=== PATIENT | male | born 1970 | race Caucasian/White ===

== ENCOUNTER 2019-12-07 13:50 | Inpatient (IN) | payer OTHER ==
[~2019-12-07] VITALS: Ht 170.2 cm; Wt 97.3 kg
--- NOTE | 2019-12-07 16:00 | NUR ---
Direct Admit Note SONDRA MARTIN admitted to [facility] unit as a direct admit per MD order. Patient oriented to ARIADNA FOREMANRN primary RN, unit, room, bed, and unit policies regarding patient care and visiting hours. Patient weighed by bedscale and encouraged to call if they need something. Bed in lowest/locked position, bed rails up x2, call light within reach. All questions and concerns addressed, patient verbalized understanding. MD notified of patients arrival and admit orders received.
--- NOTE | 2019-12-07 16:06 | NUR ---
SREEKANTH SPOKE WITH DR STACK RE: PATIENT ADMIT ORDERS. ALL ORDERS PLACED. ALL QUESTIONS/CONCERNS ANSWERED. WILL CONTINUE TO MONITOR Addendum: 12/07/19 at 1722 by ARIADNA FOREMAN RN RN PER DR STACK CONTACT DR PATRICK HAIDER DIET
--- NOTE | 2019-12-07 16:10 | NUR ---
CONSULT DR NGUYEN CALLED RE: PATIENT SURGICAL CONSULT. LEFT MESSAGE. AWAITING RETURN CALL. WILL CONTINUE TO MONITOR
[2019-12-07] MEDS ORDERED: LABE100T4 PO (16:12)
[2019-12-07] MEDS ORDERED: AMLO10TA13 PO (16:12)
[2019-12-07] MEDS ORDERED: ATOR40TA52 PO (16:12)
[2019-12-07] MEDS ORDERED: HCTZ25T PO (16:12)
[2019-12-07] MEDS ORDERED: ASPI-498 PO (16:12)
[2019-12-07] MEDS ORDERED: ALLO100T PO (16:12)
[2019-12-07] MEDS ORDERED: NAP500T PO (16:12)
[2019-12-07] MEDS ORDERED: INSUINJ2 SC (16:14)
[2019-12-07] MEDS ORDERED: NITROGLYCERIN 0.4 MG SL TAB SL PRN (16:15)
[2019-12-07] MEDS ORDERED: MORPHINE SULF INJ 2 MG/ML SYRINGE 1ML IV PRN (16:15)
[2019-12-07] MEDS ORDERED: DEXTROSE (50%) 50ML SYRG IV PRN (16:15)
[2019-12-07] MEDS ORDERED: MORPHINE SULFATE 4 MG/ML SYR/VIAL IV PRN (16:15)
--- NOTE | 2019-12-07 16:20 | NUR ---
EKG EKG DONE, IN CHART PER MD ORDERS
--- NOTE | 2019-12-07 16:30 | NUR ---
IV insertion IV access obtained, via clean sterile technique by inserting 20 gauge catheter at LFA after 1 attempt. IV secured properly. No trauma to site. Patient tolerated procedure well.
[2019-12-07] MEDS: ACCU-CHEK COMFORT CURVE STRIP VI SCH ×2 (17:00→22:14)
[2019-12-07] MEDS: InsuLIN REG 1unit/0.01ml Soln (100units/ml) SC SCH ×2 (17:00→22:00)
[2019-12-07 17:27] VITALS: BP 144/86
[2019-12-07 18:23] LABS: Basophils # (auto) 0.1 10 ^3/uL (0-0.2); Eosinophils # (auto) 0.3 10 ^3/uL (0-0.8); Neutrophils # (auto) 5.7 10 ^3/uL (1.6-8.6); Platelet Count (auto) 136 10^3/uL (140-450)
[2019-12-07 18:24] LABS: Basophils % (auto) 0.8 % (0.0-2.0); Eosinophils % (auto) 3.3 % (0.0-7.0); Hematocrit 52.4 % (41.0-53.0); Hemoglobin 18.2 g/dL (13.5-17.5); Lymphocytes # (auto) 1.6 10 ^3/uL (0.4-5.4); Lymphocytes % (auto) 18.9 % (10.0-50.0); Mean Corpuscular Hemoglobin 30.5 pg (28.0-32.0); Mean Corpuscular Hgb Conc. 34.8 g/dL (32.0-36.0); Mean Corpuscular Volume 87.7 fL (80.0-100.0); Monocytes # (auto) 0.7 10 ^3/uL (0-1.3); Monocytes % (auto) 8.4 % (0.0-12.0); Neutrophils % (auto) 68.6 % (37.0-80.0); Nucleated Red Blood Cells % 0.3 %; Red Blood Cells 5.97 10^6/uL (4.5-5.90); Red Cell Distribution Width 13.5 % (11.8-14.3); White Blood Cell 8.3 10^3/uL (4.4-10.8)
[2019-12-07 18:41] LABS: Albumin 3.6 g/dL (3.4-5.0); Calcium 9.1 mg/dL (8.5-10.1); Potassium 3.4 mmol/L (3.5-5.1)
--- NOTE | 2019-12-07 18:41 | NUR ---
SREEKANTH PATIENT STATED "HE HAS SLEEP APNEA AND WANTS TO KNOW IF WE HAVE THE MACHINE" INFORMED PATIENT THAT I WOULD CONTACT DR STACK RE: SLEEP APNEA. LEFT MESSAGE WITH DR STACK, AWAITING RETURN CALL
[2019-12-07 18:43] LABS: BUN/Creatinine Ratio 13.6
[2019-12-07 18:45] LABS: Bilirubin, Total 0.9 mg/dL (0.2-1.0)
--- NOTE | 2019-12-07 18:46 | NUR ---
SREEKANTH CALL BACK RECEIVED CALL FROM DR STACK RE: SLEEP APNEA. PER DR STACK; HE WILL VERIFY PATIENT'S NEEDS WITH FACILITY.
--- NOTE | 2019-12-07 19:30 | NUR ---
Opening Shift Note Assumed care of patient, awake and alert. No S/S of distress/SOB or pain. Inmate guards present at bedside. Bed in lowest locked position, safety precautions in place, and call light within reach. Instructed on POC and to call for assist PRN, will continue to monitor for changes Q1hr and PRN.
[2019-12-07 19:55] LABS: INR 1.04 (0.9-1.15); Partial Thromboplastin Time 30.7 sec (23.0-31.2)
[2019-12-07 22:00] VITALS: BP 124/84
[2019-12-07] MEDS ORDERED: LABETALOL HCL 200 MG TAB PO SCH (22:00)
[2019-12-07] MEDS: INSULIN NPH Isophane (HUMAN) 1unit/0.01ml Susp(100units/ml) SC SCH (22:00)
[2019-12-08 05:00] VITALS: BP 126/84
[2019-12-08] MEDS: InsuLIN REG 1unit/0.01ml Soln (100units/ml) SC SCH ×4 (06:20→22:00)
[2019-12-08] MEDS: ACCU-CHEK COMFORT CURVE STRIP VI SCH ×3 (06:20→16:30)
--- NOTE | 2019-12-08 08:00 | NUR ---
Opening Shift Note Assumed care of patient, awake, alert, and oriented. No S/S of distress/SOB or pain. Bed in lowest/locked position, bed rails up x2, call light within reach. Guards at bedside. Instructed on POC and to call for assist PRN. Will continue to monitor for changes Q1hr and PRN.
--- NOTE | 2019-12-08 08:20 | NUR ---
ROUNDS DR STACK AT BEDSIDE
[2019-12-08 09:00] VITALS: BP 145/82
[2019-12-08] MEDS: ALLOPURINOL 100 MG TAB PO SCH (09:16)
[2019-12-08] MEDS: HCTZ 25 MG TAB PO SCH (09:16)
[2019-12-08] MEDS: amLODIPine BESYLATE 5 MG TAB PO SCH (09:17)
[2019-12-08] MEDS: LABETALOL HCL 200 MG TAB PO SCH ×2 (09:17→22:15)
[2019-12-08] MEDS: INSULIN NPH Isophane (HUMAN) 1unit/0.01ml Susp(100units/ml) SC SCH ×2 (09:20→22:00)
[2019-12-08 13:00] VITALS: BP 127/81
[2019-12-08 17:00] VITALS: BP 134/72
--- NOTE | 2019-12-08 19:10 | NUR ---
MD NGUYEN RECEIVED CALL FROM DR NGUYEN RE: PATIENT PROCEDURE. NEW ORDERS RECEIVED/WILL ENDORSE TO NIGHT RN.
--- NOTE | 2019-12-08 19:20 | NUR ---
LAB TOREY SWAB WALKED TO LAB
--- NOTE | 2019-12-08 19:45 | NUR ---
OPENING SHIFT NOTE PT RESTING IN BED WITH 3 GUARDS AT BEDSIDE AND RIGHT WRIST HANDCUFFED TO SIDE RAIL. NO S/S OF ANY DISTRESS NOTED AT THIS TIME. POC DISCUSSED WITH PT AND VERBALIZES UNDERSTANDING. BED IS LOW, WHEELS ARE LOCKED, AND CALL LIGHT IS WITH IN REACH.
[2019-12-08 22:00] VITALS: BP 135/69
[2019-12-09] MEDS: ACCU-CHEK COMFORT CURVE STRIP VI SCH ×5 (00:14→21:41)
[2019-12-09 05:00] VITALS: BP 133/80
--- NOTE | 2019-12-09 05:00 | NUR ---
PT CHG WIPE BATH DONE NOW. LINENS CHANGED, AND PT PUT ON NEW GOWN AND SOCKS.
[2019-12-09] MEDS: InsuLIN REG 1unit/0.01ml Soln (100units/ml) SC SCH ×4 (05:57→21:42)
--- NOTE | 2019-12-09 06:15 | NUR ---
NEW IV STARTED IN RIGHT AC WITH 22G CATH.
[2019-12-09 06:52] LABS: Eosinophils # (auto) 0.3 10 ^3/uL (0-0.8); Lymphocytes # (auto) 1.4 10 ^3/uL (0.4-5.4); Monocytes # (auto) 0.7 10 ^3/uL (0-1.3)
[2019-12-09 06:58] LABS: Basophils # (auto) 0 10 ^3/uL (0-0.2); Basophils % (auto) 0.6 % (0.0-2.0); Eosinophils % (auto) 4.6 % (0.0-7.0); Hematocrit 54.8 % (41.0-53.0); Hemoglobin 18.4 g/dL (13.5-17.5); Lymphocytes % (auto) 20.1 % (10.0-50.0); Mean Corpuscular Hemoglobin 29.7 pg (28.0-32.0); Mean Corpuscular Hgb Conc. 33.5 g/dL (32.0-36.0); Mean Corpuscular Volume 88.7 fL (80.0-100.0); Monocytes % (auto) 10.1 % (0.0-12.0); Neutrophils # (auto) 4.5 10 ^3/uL (1.6-8.6); Neutrophils % (auto) 64.6 % (37.0-80.0); Nucleated Red Blood Cells % 0.1 %; Platelet Count (auto) 145 10^3/uL (140-450); Red Blood Cells 6.17 10^6/uL (4.5-5.90); Red Cell Distribution Width 13.8 % (11.8-14.3)
[2019-12-09 07:07] LABS: BUN/Creatinine Ratio 13.6; Calcium 9.3 mg/dL (8.5-10.1); INR 1.03 (0.9-1.15); Partial Thromboplastin Time 30.1 sec (23.0-31.2); Potassium 3.5 mmol/L (3.5-5.1)
--- NOTE | 2019-12-09 07:30 | NUR ---
Opening Shift Note Assumed care of patient, awake and alert. No S/S of distress/SOB or pain. Instructed on POC and to call for assist PRN, will continue to monitor for changes Q1hr and PRN.
[2019-12-09 09:00] VITALS: BP 138/79
[2019-12-09] MEDS: INSULIN NPH Isophane (HUMAN) 1unit/0.01ml Susp(100units/ml) SC SCH ×2 (10:00→21:42)
[2019-12-09] MEDS: ALLOPURINOL 100 MG TAB PO SCH (10:00)
[2019-12-09] MEDS: amLODIPine BESYLATE 5 MG TAB PO SCH (10:00)
[2019-12-09] MEDS: HCTZ 25 MG TAB PO SCH (10:00)
[2019-12-09] MEDS: LABETALOL HCL 200 MG TAB PO SCH ×2 (10:00→21:49)
--- NOTE | 2019-12-09 12:30 | NUR ---
This RN took pt. down to Pre-op for procedure. Pt. showed no s/s of distress.
[2019-12-09 13:00] VITALS: BP 135/72
[2019-12-09] MEDS ORDERED: SUCCINYLCHOLINE CHLORIDE 20 MG/ML 10ML VIAL IV ONE (14:05)
[2019-12-09] MEDS ORDERED: LIDOCAINE 1% (LOCAL ANESTH.) PF 5ml SDV ONE (14:05)
[2019-12-09] MEDS ORDERED: BUPIVACAINE 0.25% INJ 50ML VIAL ONE (14:12)
[2019-12-09] MEDS ORDERED: LIDOCAINE 1% HCL (LOCAL ANESTH.) INJ 20ML MDV ONE ×2 (14:13)
[2019-12-09] MEDS ORDERED: ROCURONIUM 10MG/ML 10ML VIAL IV ONE (14:24)
[2019-12-09] MEDS ORDERED: cefOXitin 2GM/100ML 100 ML IV ONE (14:31)
[2019-12-09] MEDS ORDERED: MIDAZOLAM HCL 1MG/1ML-2 ML VIAL ONE (14:37)
[2019-12-09] MEDS ORDERED: ETOMIDATE (2MG/ML) 20ML VIAL IV ONE (14:38)
[2019-12-09] MEDS ORDERED: METOCLOPRAMIDE HCL 5MG/ml INJ 2ml VIAL ONE (14:38)
[2019-12-09] MEDS ORDERED: fentaNYL CITRATE 100 MCG/2 ML VL ONE (14:53)
[2019-12-09] MEDS ORDERED: ONDANSETRON HCL 4 MG/2 ML VIAL IV PRN (15:15)
[2019-12-09] MEDS ORDERED: NALOXONE HCL 0.4 MG/ML VIAL IV PRN (15:15)
[2019-12-09] MEDS ORDERED: ACCU-CHEK COMFORT CURVE STRIP VI ONE (15:15)
[2019-12-09] MEDS ORDERED: GLYCOPYRROLATE 0.2 MG/ML 1ML VIAL ONE (15:15)
[2019-12-09] MEDS ORDERED: NEOSTIGMINE 1 MG/ML INJ (10mg/10ML VIAL) ONE (15:15)
[2019-12-09] MEDS ORDERED: HYDROmorphone HCL 2 MG/ML VL IV PRN ×2 (15:15)
[2019-12-09] MEDS ORDERED: OXYCODONE W/ ACETAMINOPHEN 5/325MG TABLET PO PRN ×2 (15:45)
--- NOTE | 2019-12-09 16:30 | NUR ---
Pt. back on unit from PACU. Incision is intact, vital signs within normal limits. This RN will continue to monitor pt. for changes in condition.
[2019-12-09 17:00] VITALS: BP 133/76
--- NOTE | 2019-12-09 19:45 | NUR ---
Opening Shift Note Assumed care of patient. Pt is awake and alert, oriented X 4. No S/S of respiratory distress. Respirations are regular and non-labored. Bed is in lowest locked position, bed rails up X 2, call light is within reach. Guards at bedside. Instructed on POC and to call for assistance PRN. Will continue to monitor for changes Q1hr and PRN.
[2019-12-09 20:00] VITALS: BP 147/78
[2019-12-09 22:06] VITALS: BP 147/78
[2019-12-10 05:00] VITALS: BP 133/94
[2019-12-10] MEDS: InsuLIN REG 1unit/0.01ml Soln (100units/ml) SC SCH ×2 (06:48→11:30)
[2019-12-10] MEDS: ACCU-CHEK COMFORT CURVE STRIP VI SCH ×2 (06:48→11:35)
[2019-12-10 09:00] VITALS: BP 138/84
[2019-12-10] MEDS ORDERED: ENOXAPARIN SOD 40 MG/0.4 ML SYRINGE SC SCH (10:00)
[2019-12-10] MEDS ORDERED: PANTOPRAZOLE 40 MG TAB PO SCH (10:00)
[2019-12-10] MEDS: ALLOPURINOL 100 MG TAB PO SCH (11:21)
[2019-12-10] MEDS: LABETALOL HCL 200 MG TAB PO SCH (11:22)
[2019-12-10] MEDS: HCTZ 25 MG TAB PO SCH (11:23)
[2019-12-10] MEDS: amLODIPine BESYLATE 5 MG TAB PO SCH (11:24)
[2019-12-10] MEDS: INSULIN NPH Isophane (HUMAN) 1unit/0.01ml Susp(100units/ml) SC SCH (12:09)
[2019-12-10 13:00] VITALS: BP 141/92
[2019-12-10 14:36] VITALS: BP 138/84
--- NOTE | 2019-12-10 15:00 | NUR ---
Discharge instructions given as ordered. All questions and concerns addressed. Patient verbalized understanding. IV removed with catheter intact, pressure dressing applied. Patient taken to vehicle via ambulation with all personal belongings, accompanied by staff and intermediate guards. No distress noted at time of departure.
== END 2019-12-10 15:00 | DRG 354 ==
LOC: CENTRAL 15:40
PROVIDERS: ADMIT Internal Medicine; ATTEND Internal Medicine
PROC: 3E0T3BZ Introduction of Anesthetic Agent into Peripheral Nerves and Plexi, Percutaneous Approach (ICD-10-PCS; 2019-12-09)
PROC: 0WQF0ZZ Repair Abdominal Wall, Open Approach (ICD-10-PCS; principal; 2019-12-09 14:36)
DX: K42.0 Umbilical hernia with obstruction, without gangrene (principal); I13.0 Hypertensive heart and chronic kidney disease with heart failure and stage 1 through stage 4 chronic kidney disease, or unspecified chronic kidney disease; E11.22 Type 2 diabetes mellitus with diabetic chronic kidney disease; E11.42 Type 2 diabetes mellitus with diabetic polyneuropathy; E66.9 Obesity, unspecified; E78.5 Hyperlipidemia, unspecified; I50.9 Heart failure, unspecified; K43.6 Other and unspecified ventral hernia with obstruction, without gangrene; E79.0 Hyperuricemia without signs of inflammatory arthritis and tophaceous disease; N18.30 Chronic kidney disease, stage 3 unspecified; Z82.3 Family history of stroke; Z82.49 Family history of ischemic heart disease and other diseases of the circulatory system; Z87.891 Personal history of nicotine dependence; Z79.899 Other long term (current) drug therapy; Z79.84 Long term (current) use of oral hypoglycemic drugs; Z79.01 Long term (current) use of anticoagulants; Z79.891 Long term (current) use of opiate analgesic; Z79.82 Long term (current) use of aspirin; Z84.1 Family history of disorders of kidney and ureter; Z68.33 Body mass index [BMI] 33.0-33.9, adult; Z20.828 Contact with and (suspected) exposure to other viral communicable diseases
CPT/HCPCS: 36415; 71045; 80048; 80053; 82962; 85025; 85610; 85730; 87426; 93005; G0378; J0330; J0694; J1815; J2001; J2250; J2405; J3490